=== PATIENT | male | born 1940 | race Caucasian/White ===

== ENCOUNTER 2020-04-21 14:37 | Inpatient (IN) | payer MEDICARE, BC, SELFPAY ==
[2020-04-21] VITALS (9 sets, daily range): BP systolic 149–171; BP diastolic 60–68; PULSE 55–78; RESP 20; TEMP 35.9–36.6; O2SAT 97–100; BMI 22.4; BMI 22.6
--- NOTE | ~2020-04-21 | XR_ITS ---
EXAMINATION: XR chest 2V DATE: 04/21/2020 20:34 INDICATION: Generalized chest pain. Unstable angina. TECHNIQUE: PA and lateral views of the chest were obtained. COMPARISON: None FINDINGS: The lungs are clear with no focal airspace opacities, pulmonary edema, pleural effusion or pneumothor ax. Arch size is normal. Calcified mediastinal lymph nodes consistent with old granulomatous disease. Moderate bilateral acromioclavicular osteoarthritis with prominent inferiorly directed osteophytes. IMPRESSION: 1. No acute cardiopulmonary disease. Reviewed, dictated and finalized at location A.
--- NOTE | 2020-04-21 15:37 | ADMGEN ---
This patient, Zacarias Jacobsen, was admitted to IMU Room 211-01. Patient/family oriented to hospital policies and general routines including ID bracelet, bed and alarms, visiting hours, pain management, procedures, bathroom and other care routines, personal items, smoking policy, room service/diet, and visiting hours. Valuables list has been completed. Information on how to activate the Rapid Response Team has been discussed. Patient/Family are encouraged to report perceived risks to care and to ask questions if they do not understand what they are told or what they should do.
[2020-04-21 16:45] LABS: Hematocrit 38.7 % (42.0-52.0); Hemoglobin 12.9 g/dL (14.0-18.0); Mean Corpuscular HGB Conc 33.3 g/dl (32-36); Mean Corpuscular Hemoglobin 32.5 pg (26-34); Mean Corpuscular Volume 97.5 fl (80-100); Mean Platelet Volume 10.8 fl (7.4-10.4); Platelet Count Result 227 k/mm3 (150-375); Red Blood Count 3.97 M/mm3 (4.6-6.20); Red Cell Distribution Width 12.9 % (11.5-14.5); White Blood Count 7.7 K/mm3 (4.5-10.0)
--- NOTE | 2020-04-21 16:47 | ECG_ITS ---
Measurements Intervals [place] Rate: 57 P: -52 VT: 170 QRS: 48 QRSD: 101 T: 73 QT: 415 QTc: 405 Interpretive Statements SINUS BRADYCARDIA NONSPECIFIC ST & T-WAVE ABNORMALITY- HIGH LATERAL LEADS BASELINE WANDER- III BORDERLINE ECG Electronically Signed On 04-21-2020 18:00:46 CDT by Pan Chen D.O.
--- NOTE | 2020-04-21 16:50 | PM.IMHP ---
H&P: HPI History of Present Illness Chief complaint: chest pain Narrative: Date of service: 04/21/2020 Zacarias Jacobsen is a 80 year old male who is being admitted with unstable angina/crescendo angina. His primary care doctor is Dr. Enoc Rodriguez. Mr. Jacobsen started having problems with exertional chest discomfort about a month ago. It is progressed such that minor activity can cause discomfort and he has had rest pain is well. In addition the intensity has worsened, radiating through to the back, sometimes to his arms. He had some angina this morning while painting a post. He came to our office for a Lexiscan stress test, and had prolonged ST depression after the Lexiscan. He also had some chest and arm discomfort for a time after the testalso. Imaging is pending. No history of heart disease. He has hypertension but no diabetes or hyperlipidemia. The patient has a history of rectal bleeding if he takes aspirin for more than a week. He was told that the blood vessels in his rectum are small and bleed easily. Review of Systems Constitutional: Constitutional: Denies chills and Denies weakness Eyes: Eyes: Reports blurry vision (History I have problem) ENT: Denies Normal hearing present (Wears hearing aides) and Denies nasal congestion Cardiovascular: Cardiovascular: Reports chest pain, Denies pedal edema, Denies leg edema and Denies lightheadedness Respiratory: Respiratory: Denies hemoptysis and Denies dyspnea Gastrointestinal: Gastrointestinal: Denies abdominal pain, Denies hematochezia and Denies hematemesis Genitourinary: Genitourinary: Denies hematuria Musculoskeletal: Musculoskeletal: Reports no additional musculoskeletal complaints Neurologic: Comments: 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, had an angiogram Psychiatric: Psychiatric: Denies behavioral changes and Denies confusion PMFSH Past Medical History Medical History (Updated 04/21/20 @ 17:11 by Kayleen Castaneda MD) Hard of hearing History of rectal bleeding Occurs when patient takes aspirin for prolonged period 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 Thyroid disease Surgical History Surgical History (Updated 04/21/20 @ 16:53 by Kayleen Castaneda MD) H/O eye surgery S/P ear surgery Family History Family History (Updated 04/21/20 @ 17:06 by Kayleen Castaneda MD) Mother Cerebrovascular accident Cause of Pacemaker Father Suicide Social History Social History (Updated 04/21/20 @ 17:09 by Kayleen Castaneda MD) Smoking status: Never smoker Alcohol intake: current Drinks per week: 1 Substance use: never Substance use type: does not use Living arrangements: with family Additional occupation/education comments: Spiritual care concerns: No Meds Home Medications and Allergies Home Medications Medication Instructions Recorded Confirmed Type latanoprostene bunod [Vyzulta] 1 drp OPHTHALMIC (EYE) DAILY 04/21/20 04/21/20 History lisinopril 10 mg PO DAILY 04/21/20 04/21/20 History Allergies Allergy/AdvReac Type Severity Reaction Status Date / Time Penicillins Allergy Unknown RASH Verified 12/23/12 16:19 Vital Signs Vital Signs - 24 hr 04/21/20 15:49 Temperature 96.7 F L Pulse Rate 66 Respiratory Rate 20 Blood Pressure 171/64 H Pulse Oximetry 100 Exam Narrative: Exam Narrative: Pleasant older male who appears younger than the stated age, accompanied by his , chatty,, no distress Const: General: comfortable and no acute distress HENMT: General nose exam: no epistaxis Mouth: Yes moist mucous membranes Other: Hard of hearing Eyes: Sclera: scleral abnormality (Secondary to surgery on the left eye) Neck: Neck: supple and no JVD Carotids: no bruits Resp: Effort & Inspection: normal respiratory effort Auscultation: clear to auscultation bilaterally Cardio: Rate: regular rate Rhythm: regular rhythm Heart sounds: no murmurs GI: Inspection: non-distended GI
[2020-04-21 16:55] LABS: INR 1.3; Prothrombin Time 15.5 Seconds (11.1-14.7)
[2020-04-21 16:56] LABS: Partial Thromboplastin Time 33.2 SECONDS (22.3-36.8)
[2020-04-21 16:57] LABS: Alanine Aminotransferase 14 U/L (4-50); Albumin Level 4.3 g/dL (3.5-5.1); Alkaline Phosphatase 47 U/L (38-126); Aspartate Amino Transferase 21 U/L (17-59); Bilirubin,Total 0.5 mg/dL (0.2-1.3); Blood Urea Nitrogen 24 mg/dL (9-20); Calcium 8.8 mg/dL (8.4-10.2); Carbon Dioxide 28 mmol/L (22-30); Chloride 105 mmol/L (98-107); Estimated CRCL calculation 54 ml/min; Estimated Glomerular Filt Rate > 60; Glucose 164 mg/dL (75-110); Potassium 4.1 mmol/L (3.4-5.0); Sodium 138 mmol/L (137-145)
[2020-04-21 17:28] LABS: Hemoglobin A1C 5.7 % (<5.7)
[2020-04-21] MEDS: ASPIRIN 81 MG ENTERIC TABLET PO (18:00)
[2020-04-21] MEDS: LATANOPROST 0.005% OP SOLN 2.5 ML BTL 1 DROP EACH EYE (21:41)
[2020-04-21] MEDS: METOPROLOL TARTRATE 12.5 MG TABLET PO (21:51)
[2020-04-22] VITALS (25 sets, daily range): BP systolic 116–176; BP diastolic 52–79; PULSE 43–66; RESP 14–20; TEMP 35.7–37.1; O2SAT 96–100
[2020-04-22 05:25] LABS: Cholesterol 197 mg/dL (0-200); HDL Direct 29 mg/dL; Triglycerides 327 mg/dL (<150)
[2020-04-22 05:36] LABS: LDL Cholesterol Direct 88 mg/dL
[2020-04-22 05:37] LABS: Troponin I < 0.012 ng/mL (0.000-0.034)
--- NOTE | 2020-04-22 09:29 | WPDHPUPDATE1 ---
History and Physical Update Update Date/Time: 04/22/20 09:29 History and Physical has been reviewed, including an updated exam of the patient. There are NO changes in the patient's condition. Risks, benefits, and alternatives have been discussed and questions answered. Patient agrees to proceed with procedure.
--- NOTE | 2020-04-22 09:29 | WPDMODSED ---
Moderate Sedation Note-Pt Data Patient Data Allergies Allergy/AdvReac Type Severity Reaction Status Date / Time Penicillins Allergy Unknown RASH Verified 12/23/12 16:19 Home Medications Medication Instructions Recorded Confirmed Type latanoprostene bunod [Vyzulta] 1 drp OPHTHALMIC (EYE) DAILY 04/21/20 04/21/20 History lisinopril 10 mg PO DAILY 04/21/20 04/21/20 History Current Medications: Active Medications Aspirin (Aspirin Ec) 81 mg PO QAM [facility] Last Admin: 04/21/20 18:00 Dose: 81 mg Documented by: Latanoprost (Xalatan) 1 drop EACH EYE HS [facility] Last Admin: 04/21/20 21:41 Dose: 1 drop Documented by: Metoprolol Tartrate (Lopressor) 12.5 mg PO Q12HR [facility] Last Admin: 04/21/20 21:51 Dose: 12.5 mg Documented by: Sedation/Anesthesia: No previous sedation/anesthesia problems (including family history). [facility] Past Medical History Medical History Hard of hearing History of rectal bleeding Occurs when patient takes aspirin for prolonged period 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 Thyroid disease Surgical History Surgical History H/O eye surgery S/P ear surgery Family History Family History Mother Cerebrovascular accident Cause of Pacemaker Father Suicide Social History Social History Smoking status: Never smoker Alcohol intake: current Drinks per week: 1 Substance use: never Substance use type: does not use Living arrangements: with family Additional occupation/education comments: Spiritual care concerns: No Mod Sed Physical Exam Physical Exam Pre Procedural Exam: Normal: Appearance, Eyes, Ears, Nose, Neck, Throat, Airway, Lungs, Heart Size, Heart Rate, Heart Rhythm, Neuro Exam, Abdomen, Liver, Kidneys, Spleen, Breasts, Genitalia, Extremities and Skin Hours since solid foods: 8 Hours since liquid intake: 8 Internal Medicine - PN: Obj Da Vital Signs Vital Signs: Vital Signs - 24 hr 04/21/20 15:49 04/21/20 16:00 04/21/20 16:56 Temperature 35.9 C L 36.3 C L Pulse Rate 66 62 58 L Respiratory Rate 20 20 Blood Pressure 171/64 H 165/68 H Pulse Oximetry 100 100 04/21/20 18:00 04/21/20 19:19 04/21/20 20:00 Temperature 36.5 C Pulse Rate 58 L 55 L 78 Respiratory Rate 20 Blood Pressure 153/60 H Pulse Oximetry 100 04/21/20 21:51 04/21/20 22:00 04/21/20 23:38 Temperature 36.6 C Pulse Rate 60 58 L 62 Respiratory Rate 20 Blood Pressure 149/63 H Pulse Oximetry 97 04/22/20 00:00 04/22/20 02:00 04/22/20 03:41 Temperature Pulse Rate 47 L 45 L 45 L Respiratory Rate Blood Pressure Pulse Oximetry 04/22/20 04:00 04/22/20 06:00 04/22/20 08:00 Temperature 36.4 C L Pulse Rate 45 L 47 L 50 L Respiratory Rate 20 Blood Pressure 116/52 L Pulse Oximetry 100 04/22/20 08:23 Temperature 36.1 C L Pulse Rate 50 L Respiratory Rate 20 Blood Pressure 160/71 H Pulse Oximetry 100 Intake/Output Intake/Output: Intake & Output 04/19/20 04/20/20 04/21/20 04/22/20 23:59 23:59 23:59 23:59 Intake Total 850 Output Total 500 Balance 850 -500 Meds/Results Medications: Active Medications Generic Name Dose Route Start Last Admin Trade Name Freq PRN Reason Stop Dose Admin Aspirin 81 mg 04/21/20 16:35 04/21/20 18:00 Aspirin Ec PO 81 mg QAM FLOR Administration Latanoprost 1 drop 04/21/20 21:00 04/21/20 21:41 Xalatan EACH EYE 1 drop HS FLOR Administration Metoprolol Tartrate 12.5 mg 04/21/20 21:00 04/21/20 21:51 Lopressor PO 12.5 mg Q12HR FLOR Administration Radiology Results: ITS Impressions Chest X-Ray 04/21/20 20:38 IMPRESSION: 1. No acute cardiopulmonary disease. Labs CBC & Chem 7: 04/21/20 16:39 04/21
[2020-04-22] MEDS: ASPIRIN 81 MG ENTERIC TABLET PO (09:32)
--- NOTE | 2020-04-22 10:58 | WPDCARDPROC ---
Cardiac Cath Procedure Note Date of procedure:: 04/22/20 Performing physician:: Yariel Anaya MD Date of service 04/22/2020 Indication:: chest pain Brief clinical history:: this is a 80-year-old patient with past history of hearing loss, hypertension who was evaluated for exertional chest pain. Underwent stress testing and apparently the nuclear images were unremarkable however he had prolonged ST depression with the Lexiscan injection. he also had chest pain and therefore was admitted the patient to undergo cardiac catheterization. Procedure Procedure performed:: 1-Moderate sedation that started at 0955 am and ended at 10:52 am using 2mg of Versed and 50mg fentanyl. The registered nurse was mary clemons. 2-Selective left and right coronary angiogram. 3-Left heart catheterization with measurement of LVEDP and measurement of gradient across aortic valve. 4-Right common femoral arterial angiogram. 5-Deployment of 6 Turkmen Angio-Seal. 6- Deployment of bare metal stent multilink Vision 3.5 x 23 to mid RCA. the deployment was done with a pressure corresponding to a size of 3.77 mm. CRISTY flow 3 before and after intervention.( the stent was expanded to 3.77 mm) Sedation/Medication given:: Moderate sedation. Access site:: Right common femoral artery. Estimated blood loss:: 10cc Procedure note:: After informed consent patient was brought in to dental laboratory supervisor with the was draped and prepped in usual manner. Moderate sedation was given and the right groin was infiltrated using 1% lidocaine. Five Turkmen sheath was obtained using micropuncture needle and the modified Seldinger technique. Selective left coronary angiogram was done using JL4 catheter with the tip of the catheter placed in the left main coronary artery. Selective right coronary angiogram was done using JR4 catheter with the tip of the catheter placed to the right coronary artery. After that 5 Turkmen pigtail catheter was advanced across the aortic valve into the left ventricle with measurement of LVEDP and measurement of gradient across aortic valve. Right common femoral arterial angiogram was done. subsequently the 5 Turkmen sheath was exchanged for 6 Turkmen sheath. Angiomax was given and patient was loaded with Brilinta. After that 6 Turkmen guide catheter JR4 was advanced and engaged the right coronary artery. Coronary luge wire 0.014 was advanced to distal RCA. after that balloon angioplasty was done using 3.5 x 15 balloon with inflation done under 12 atmospheres for 30 seconds corresponding to size 3.75. after that deployment of bare metal stent 3.5 x 23 with deployment done under 13 atmospheres for 35 seconds corresponding to a size of 3.75 mm. final angiogram shows excellent Deployment. Findings:: 1- left coronary artery is a large artery that divides into large LAD, large circumflex artery. Left main funnelsl down however there is no significant stenosis. 2- left anterior descending artery is a large artery that runs and wraps around the apex. Has minimal irregularities. After diagonal branch there is a focal area of stenosis about 30%. The diagonal branch is small to medium in size and has minimal irregularities. 3- left circumflex artery is Medium in size. minimal irregularities. Gives rise to small to medium OM branch that has ostial 30%. 4- right coronary artery is Very large artery and dominant and in the mid segment has 95% stenosis. The rest of the vessel has diffuse irregularities. proximal marginal branch which is relatively small in size 95% ostial stenosis. 5- LVEDP was 20 mm Hgand no gradient across aortic valve. 6- opening arterial pressure was 148/54 and closing pressure was 130/80. 7- right femoral artery angiogram shows no significant disease in the right common femoral artery. Conclusion:: 1- successful stenting of mid RCA using bare metal stent given history of GI bleeding. 2- other coronary irregularities. Assessment and Plan Additional Plan 1- recommend to continue aspir
--- NOTE | 2020-04-22 11:51 | ECG_ITS ---
Measurements Intervals [place] Rate: 47 P: -69 [place]: 168 QRS: 41 QRSD: 92 T: 56 QT: 436 QTc: 389 Interpretive Statements SINUS BRADYCARDIA ABNORMAL ECG Electronically Signed On 04-22-2020 14:11:51 CDT by Pan Chen D.O.
[2020-04-22] MEDS: SODIUM CHLORIDE 0.9% IV 1,000 ML 100 ML IV CONT (13:28)
[2020-04-22] MEDS: METOPROLOL TARTRATE 12.5 MG TABLET PO ×2 (13:36→21:11)
[2020-04-22] MEDS: LATANOPROST 0.005% OP SOLN 2.5 ML BTL 1 DROP EACH EYE (21:11)
[2020-04-22] MEDS: TICAGRELOR 90 MG TABLET PO (21:12)
[2020-04-23] VITALS (7 sets, daily range): BP systolic 160–180; BP diastolic 58–64; PULSE 52–64; RESP 18; TEMP 36.6; O2SAT 100
[2020-04-23 05:03] LABS: Basophils Percent Auto 0.4 % (0.2-1.2); Eosinophils Absolute Auto 0.4 K/mm3 (0-0.3); Eosinophils Percent Auto 4.1 % (0-4.4); Hematocrit 35.9 % (42.0-52.0); Hemoglobin 11.9 g/dL (14.0-18.0); Immature Granulocyte Absolute 0.06 K/mm3 (0.00-0.031); Immature Granulocyte Percent A 0.7 % (0-0.5); Lymphocytes Absolute Auto 1.42 K/mm3 (0.9-3.2); Lymphocytes Percent Auto 16.8 % (18.3-44.2); Mean Corpuscular HGB Conc 33.1 g/dl (32-36); Mean Corpuscular Hemoglobin 32.4 pg (26-34); Mean Corpuscular Volume 97.8 fl (80-100); Mean Platelet Volume 11.1 fl (7.4-10.4); Monocytes Absolute Auto 0.9 K/mm3 (0.1-0.6); Neutrophils Absolute Auto 5.7 K/mm3 (1.3-6.7); Platelet Count Result 197 k/mm3 (150-375); Red Blood Count 3.67 M/mm3 (4.6-6.20); Red Cell Distribution Width 13.3 % (11.5-14.5); White Blood Count 8.5 K/mm3 (4.5-10.0)
[2020-04-23 05:15] LABS: Blood Urea Nitrogen 17 mg/dL (9-20); Calcium 8.5 mg/dL (8.4-10.2); Carbon Dioxide 29 mmol/L (22-30); Chloride 107 mmol/L (98-107); Estimated CRCL calculation 49 ml/min; Estimated Glomerular Filt Rate > 60; Glucose 93 mg/dL (75-110); Potassium 4.7 mmol/L (3.4-5.0); Sodium 137 mmol/L (137-145)
[2020-04-23] MEDS: TICAGRELOR 90 MG TABLET PO (09:37)
[2020-04-23] MEDS: METOPROLOL TARTRATE 12.5 MG TABLET PO (09:37)
[2020-04-23] MEDS: ASPIRIN 81 MG ENTERIC TABLET PO (09:37)
--- NOTE | 2020-04-23 11:12 | PM.DS ---
DS: Admitting Diagnosis Admitting Diagnosis Admitting Diagnosis: Unstable angina DS: Discharge Diagnosis Discharge Diagnosis (1) Unstable angina: Code(s): I20.0 - Unstable angina Status: Acute Assessment and Plan: Status post bare metal stent to right coronary artery 04/22/[address] Anaya DS: Summary Hospital Course Reason for hospitalization: Unstable angina Hospital Course: Direct admit from the office on 04/21/2020 with exertional chest discomfort. He was seen in the office for stress test with prolonged ST depression after Lexiscan. Because of his symptoms and EKG changes he was admitted for cardiac catheterization. He was started on aspirin 81 mg and low-dose Metoprolol. Cardiac catheterization was performed on 04/22/2020 with a significant for very large right coronary artery which was dominant in in the mid section had a 95% stenosis. The rest of the vessel had diffuse irregularities. Proximal marginal branch which was relatively small in size headed 95% ostial stenosis. He underwent successful stenting in the mid RCA using bare metal stent given his history of GI bleed. He was started on Brilinta in addition to his aspirin. He was monitored overnight. He had no arrhythmias. Right groin site was unchanged from the initial assessment immediately post cardiac catheterization. No femoral bruit. Distal pulses intact. He has been ambulating in his room without chest discomfort or shortness of breath. Denied dizziness. Discharged home in stable and pain-free condition. Status at Discharge Functional status at discharge: independent ambulation Overall status at discharge: patient is back to baseline Time Spent with Patient Time attestation: Total time spent providing and/or coordinating discharge services: 20 minutes in the room answering multiple questions regarding medications, activity restrictions, what to do if he should start to bleed, reactions that he had with pain in his groin to upper thigh when he took a statin, follow-up appointment and follow-up lab. 10 minutes to do discharge order and 10 minutes to complete discharge summary. Total time 40 minutes. Time spent: Greater than 30 minutes Exam Const: General: comfortable and no acute distress HENMT: General nose exam: Normal nares present Eyes: Sclera: sclerae normal Neck: Neck: supple and no JVD Resp: Effort & Inspection: normal respiratory effort Auscultation: clear to auscultation bilaterally Cardio: Rate: regular rate Rhythm: regular rhythm Heart sounds: no murmurs GI: GI Palp: Yes Soft to palpation Auscultation: normal bowel sounds Skin: General skin exam: normal color and no rashes or lesions noted Neuro: General: patient oriented x3 Speech: normal speech Extrem: General: other Other: Right groin site assessment is unchanged from the initial assessment post cardiac catheterization yesterday. There is slight puffiness. No bleeding. No femoral bruit. Distal pulses intact. Psych: Appearance: grossly normal Speech and movement: Normal speech and movement present Affect: normal affect Thought content: Yes Normal thought content present DS: Data Data Completed and Pending Labs on day of discharge: Labs from last 24 hours 04/23/20 04/23/20 04:35 04:35 WBC 8.5 RBC 3.67 L Hgb 11.9 L Hct 35.9 L MCV 97.8 MCH 32.4 MCHC 33.1 RDW 13.3 Plt Count 197 MPV 11.1 H Immature Gran % (Auto) 0.7 H Neut % (Auto) 67.0 Lymph % (Auto) 16.8 L [place] % (Auto) 11.0 H Eos % (Auto) 4.1 Baso % (Auto) 0.4 Lymph # (Auto) 1.42 [place] # (Auto) 0.9 H Eos # (Auto) 0.4 H Baso # (Auto) 0.0 Abs Immat Gran (auto) 0.06 H Absolute Neuts (auto) 5.7 Absolute Nucleated RBC 0.0 Nucleated RBC % 0.0 Sodium 137 Potassium 4.7 Chloride 107 Carbon Dioxide 29 BUN 17 Creatinine 1.10 Estim Creat Clear Calc 49 Estimated GFR > 60 Glucose 93 Calcium 8.5 Discharge Plan Disch
== END 2020-04-23 12:40 | disposition home or self-care (01) | DRG 249 ==
PROVIDERS: Internal Medicine Cardiovascular Disease; Nurse Practitioner Adult Health; Admitting Provider Internal Medicine Cardiovascular Disease; PCP Internal Medicine; Visit Provider Internal Medicine Cardiovascular Disease
PROC: 4A023N7 Measurement of Cardiac Sampling and Pressure, Left Heart, Percutaneous Approach (ICD-10-PCS; CPT 93452; principal; 2020-04-22 10:00)
PROC: 02703DZ Dilation of Coronary Artery, One Artery with Intraluminal Device, Percutaneous Approach (ICD-10-PCS; 2020-04-22 10:00)
PROC: 02703DZ Dilation of Coronary Artery, One Artery with Intraluminal Device, Percutaneous Approach (ICD-10-PCS; 2020-04-22 10:00)
DX: I25.110 Atherosclerotic heart disease of native coronary artery with unstable angina pectoris (principal); I10 Essential (primary) hypertension; Z86.73 Personal history of transient ischemic attack (TIA), and cerebral infarction without residual deficits; E07.9 Disorder of thyroid, unspecified; R73.9 Hyperglycemia, unspecified
CPT/HCPCS: 36415; 71046; 80048; 80053; 80061; 83036; 84484; 85025; 85027; 85610; 85730; 92928; 93005; 93458; A9270; C1725; C1760; C1769; C1876; C1887; C1894; G0269; J0461; J0583; J1644; J2250; J3010; J7030; J7040

== ENCOUNTER 2025-04-01 07:52 | Outpatient (CLI) | payer MEDICARE, BC, SELFPAY ==
--- OUTSIDE RECORDS SUMMARY | 2025-04-01 07:55 | XMS_ITS | CONTINUITY OF CARE DOCUMENT ---
Author Name [email or web address] Address Unknown Organization [facility] Address [id number] [place] [address] [address] [place] [address] Phone [phone] Care Team Providers Care Interlocker Name Role Phone Janel GTZ, Bobo Unavailable [phone] DIEUDONNE SHELTON MD Unavailable [phone] DIEUDONNE SHELTON MD Unavailable [phone] INSURANCE PROVIDERS Payer name Policy type / Coverage type [employer] red democrat ID [facility] [id number] [place] [employer] Medicare [id number]
--- OUTSIDE RECORDS SUMMARY | 2025-04-01 07:55 | XMS_ITS | Data Portability ---
Author Organization [facility] Address [address] [place] [address] Care Team Providers Care Semiconductor Engineer Name Role Phone DIEUDONNE RODRIGUEZ Primary Care Provider Assessment Encounter Date Assessment Date Assessment LastModified by Organization Details LastModified Time 01/23/2024 01/23/2024 X-ray severe arthritis I worry about the fact that he had a little bit of that nicking of the skin so empirically doxycycline 100 twice daily 7 days and a Medrol dose x-rays reviewed by report as well as blood work that he brought with him from the emergency room. CAD will continue current therapy he has not tolerated statins before I have tried to put him on Zetia but he has been resistant. Hypothyroid we have just been following his blood work for that he has seen Endo before. He will let me know in a few days how he is doing. Obtain records from prior clinic [email or web address] Not available 01/23/2024 21:09:43 10/13/2024 10/13/2024 blood work has been ordered we will continue current therapy he will follow up with me in 4 months is not going to do a COVID shot and he will think about the pneumococcal [email or web address] Not available 10/19/2024 15:41:19 Plan of Treatment Reminders Order Date Submit Date Provider Last Modified By Organization Details Last Modified Time Details Appointments ANY 15 2024 01:30P M Dieudonne Rodriguez MD Not available Not available Not available Lab lipid panel, serum 2023 024 [facility] Registration Department, [address] [place] [address] [place], [address], 10/17/2024 17:55:22 CMP, serum or plasma 2023 024 [facility] Registration [facility], [address], [place], [address], 10/17/2024 17:55:22 CBC w/ auto diff 2023 024 [facility] Registration [facility], [address], [place], [address], 10/17/2024 17:55:21 TSH, ultra-sen sitive, serum 2023 024 [facility] Registration Department, [address], [place], [address], 10/17/2024 17:55:21 T3, free, serum or plasma 2023 024 [facility] Registration [facility], [address], [place], [address], 10/17/2024 17:55:22 unlisted lab 2023 024 [facility] Registration [facility], [address] , [place], [address], 10/17/2024 17:55:21 Referral None recorded. Procedures None recorded. Surgeries None recorded. Imaging None recorded. Medication Orders Medrol (Jared) 4 mg tablets in a dose pack 2023 024 [facility] #[id number], [address] [place], [address], 10/13/2024 15:17:39 doxycycli ne hyclate 100 mg capsule 2023 024 [facility] #[id number], [address] [place], [address], 10/13/2024 15:17:30 Patient TargetsNo targets recorded. Patient InstructionsNo instructions recorded. Reason for Referral None Reported. Results Created Date Observation Date Name Description Value Unit Range Abnormal Flag Note LastModifiedBy Organization Detail LastModifiedTime 10/22/20 24 10/23/2024 Teodora stero l in LDL [Mass /volu me] in Serum or Plasm a by Direc t assay cholesterol in LDL [mass/volume ] in serum or plasma by direct assay 135 text: <100 mg/dL high DIREC T LDL 135 (H) <100 MG/DL 10/23 4:03 AM DOUGHNUT MACHINE OPER[facility] Not Available Not Available 01/05/2025 11:13:05 10/22/20 24 10/23/2024 Teodora stero l in LDL [Mass /volu me] in Serum or Plasm a by Direc t assay interpretati on and review of laboratory results Abnorm al Not Available Not Available 11:13:05 10/22/20 24 10/23/2024 Triio dothy ferdinand e (T3) Free [Mass /volu me] in Serum or Plasm a triiodothyro nine (T3) free [mass/volume ] in serum or plasma 2.6 pg/mL low: 2.18pg /mLhig h: 3.98pg /mL FREE T3 2.6 2.18 - 3.98 PG/ML 10/23 12:[address] [facility] Not Available Not Available 01/05/2025 11:13:05 10/22/20 24 10/22/2024 Thyro tropi n [Unit s/vol ume] in Serum or Plasm a thyrotropin [units/volum e] in serum or plasma 10.1 text: 0.358 - 3.74 uIU/mL high TSH 10.10 0 (H) 0.358 - 3.74 uIU/M L 10/22 8:05 [facility] Not [facility] Not Available 01/05/2025 11:13:05 10/22/20 24 10/22/2024 Thyro tropi n [Unit s/vol ume] in Serum or Plasm a interpretati on and review of laboratory results Abnorm al Not Available Not Available 11:13:05 10/22/20 24 10/22/2024 CBC W Auto Diffe renti al panel - Blood leukocytes [#/volume] in blood by automated count 6.08 text: 4.50 - 11.00 x10'3/ uL WBC 6.08 4.50 - 11.00 x10'3 /uL 10/22 12:19 PM DOUGHNUT MACHINE OPERATOR [facility] Not Available Not Available 01/05/2025 11:13:04 10/22/20 24 10/22/2024 CBC W Auto Diffe renti al panel - Blood erythrocytes [#/volume] in blood by automated count 3.87 text: 4.50 - 5.90 x10'6/ uL low RBC 3.87 (L) 4.50 - 5.90 x10'6 /uL 10/22 12:19 PM DOUGHNUT MACHINE OPERATOR [facility] Not Available Not Available 01/05/2025 11:13:04 10/22/20 24 10/22/2024 CBC W Auto Diffe renti al panel - Blood hemoglobin [mass/volume ] in blood 12.6 text: 14.0 - 18.0 g/dL low HGB 12.6 (L) 14.0 - 18.0 G/DL 10/22 12:19 PM DOUGHNUT MACHINE OPERATOR [facility] Not Available Not Available 01/05/2025 11:13:04 10/22/20 24 10/22/2024 CBC W Auto Diffe renti al panel - Blood hematocrit [volume fraction] of blood 37.7 % low: 43%hig h: 54% low HCT 37.7 (L) 43.0 - 54.0 % 10/22 12:19 PM DOUGHNUT MACHINE OPERATOR [facility] Not Available Not Available 01/05/2025 11:13:04 10/22/20 24 10/22/2024 CBC W Auto Diffe renti al panel - Blood MCV [entitic volume] 97.4 text: 80.0 - 100.0 fL MCV 97.4 80.0 - 100.0 FL 10/22 12:19 PM DOUGHNUT MACHINE OPERATOR [facility] Not Available Not Available 01/05/2025 11:13:04 10/22/20 24 10/22/2024 CBC W Auto Diffe renti al panel - Blood MCH [entitic mass] 32.6 pg low: 26pghi gh: 34pg MCH 32.6 26.0 - 34.0 PG 10/22 12:19 PM DOUGHNUT MACHINE OPERATOR [facility] Not Available Not Available 01/05/2025 11:13:04 10/22/20 24 10/22/2024 CBC W Auto Diffe renti al panel - Blood MCHC [mass/volume ] 33.4 text: 31.0 - 37.0 g/dL MCHC 33.4 31.0 - 37.0 G/DL 10/22 12:19 PM DOUGHNUT MACHINE OPERATOR [facility] Not Available Not Available 01/05/2025 11:13:04 10/22/20 24 10/22/2024 CBC W Auto Diffe renti al panel - Blood erythrocyte distribution width [entitic volume] by automated count 12.5 % low: 11.6%h igh: 14.8% RDW 12.5 11.6 - 14.8 % 10/22 12:19 PM DOUGHNUT MACHINE OPERATOR HELPER [facility] Not Available Not Available 01/05/2025 11:13:04 10/22/20 24 10/22/2024 CBC W Auto Diffe renti al panel - Blood platelets [#/volume] in blood 216 text: 130 - 400 x10'3/ uL PLT 216 130 - 400 x10'3 /uL 10/22 12:19 PM DOUGHNUT MACHINE OPERATOR [facility] Not Available Not Available 01/05/2025 11:13:04 10/22/20 24 10/22/2024 CBC W Auto Diffe renti al panel - Blood platelet mean volume [entitic volume] in blood 10.8 text: 7.0 - 12.0 fL MPV 10.8 7.0 - 12.0 FL 10/22 12:19 PM DOUGHNUT MACHINE OPERATOR [facility] Not Available Not Available 01/05/2025 11:13:04 10/22/20 24 10/22/2024 CBC W Auto Diffe renti al panel - Blood service comment AUTOMA GEOVANY RBC MORPHO LOGY AND PLATEL ET EVALUA TION NORMAL CBC COMME NT AUTOM ATED RBC MORPH OLOGY AND PLATE LET EVALU ATION LORRAINE L 10/22 12:19 PM DOUGHNUT MACHINE OPERATOR [facility] Not Available Not Available 01/05/2025 11:13:04 10/22/20 24 10/22/2024 CBC W Auto Diffe renti al panel - Blood neutrophils/ 100 leukocytes in blood by automated count 60.1 % low: 40%hig h: 74% NEUTR OPHIL S % 60.1 40.0 - 74.0 % 10/22 12:19 PM DOUGHNUT MACHINE OPERATOR [facility] Not Available Not Available 01/05/2025 11:13:04 10/22/20 24 10/22/2024 CBC W Auto Diffe renti al panel - Blood lymphocytes/ 100 leukocytes in blood by automated count 23.2 % low: 14%hig h: 46% LYMPH OCYTE S % 23.2 14.0 - 46.0 % 10/22 12:19 PM DOUGHNUT MACHINE OPERATOR [facility] Not Available Not Available 01/05/2025 11:13:04 10/22/20 24 10/22/2024 CBC W Auto Diffe renti al panel - Blood monocytes/10 0 leukocytes in blood by automated count 11.8 % low: 4%high : 13% MONOC YTES % 11.8 4.0 - 13.0 % 10/22 12:19 PM DOUGHNUT MACHINE OPERATOR [facility] Not Available Not Available 01/05/2025 11:13:04 10/22/20 24 10/22/2024 CBC W Auto Diffe renti al panel - Blood eosinophils/ 100 leukocytes in blood by automated count 4.1 % low: 0%high : 7% EOSIN OPHIL S 4.1 0.0 - 7.0 % 10/22 12:19 PM DOUGHNUT MACHINE OPERATOR [facility] Not Available Not Available 01/05/2025 11:13:04 10/22/20 24 10/22/2024 CBC W Auto Diffe renti al panel - Blood basophils/10 0 leukocytes in blood by automated count 0.5 % low: 0%high : 3% BASOP HILS 0.5 0.0 - 3.0 % 10/22 12:19 PM DOUGHNUT MACHINE OPERATOR [facility] Not Available Not Available 01/05/2025 11:13:04 10/22/20 24 10/22/2024 CBC W Auto Diffe renti al panel - Blood immature granulocytes /100 leukocytes in blood by automated count 0.3 % low: 0%high : 0.43% IMMAT URE GRANS % 0.3 0.0 - 0.43 % 10/22 12:19 PM DOUGHNUT MACHINE OPERATOR [facility] Not Available Not Available 01/05/2025 11:13:04 10/22/20 24 10/22/2024 CBC W Auto Diffe renti al panel - Blood nucleated erythrocytes /100 leukocytes [ratio] in blood 0 % NRBC % 0.0 % 10/22 12:19 PM DOUGHNUT MACHINE OPERATOR [facility] Not Available Not Available 01/05/2025 11:13:04 10/22/20 24 10/22/2024 CBC W Auto Diffe renti al panel - Blood neutrophils [#/volume] in blood 3.65 text: 1.69 - 7.81 x10'3/ uL ABS. NEUTR OPHIL S TOTAL 3.65 1.69 - 7.81 x10'3 /uL 10/22 12:19 PM DOUGHNUT MACHINE OPERATOR [facility] Not Available Not Available 01/05/2025 11:13:04 10/22/20 24 10/22/2024 CBC W Auto Diffe renti al panel - Blood lymphocytes [#/volume] in blood 1.41 text: 0.21 - 5.42 x10'3/ uL ABS. LYMPH OCYTE S 1.41 0.21 - 5.42 x10'3 /uL 10/22 12:19 PM DOUGHNUT MACHINE OPERATOR [facility] Not Available Not Available 01/05/2025 11:13:04 10/22/20 24 10/22/2024 CBC W Auto Diffe renti al panel - Blood monocytes [#/volume] in blood 0.72 text: 0.04 - 1.37 x10'3/ uL ABS. MONOC YTES 0.72 0.04 - 1.37 x10'3 /uL 10/22 12:19 PM DOUGHNUT MACHINE OPERATOR [facility] Not Available Not Available 01/05/2025 11:13:04 10/22/20 24 10/22/2024 CBC W Auto Diffe renti al panel - Blood eosinophils [#/volume] in blood 0.25 text: 0.00 - 0.68 x10'3/ uL ABS. EOSIN OPHIL S 0.25 0.00 - 0.68 x10'3 /uL 10/22 12:19 PM DOUGHNUT MACHINE OPERATOR [facility] Not Available Not Available 01/05/2025 11:13:04 10/22/20 24 10/22/2024 CBC W Auto Diffe renti al panel - Blood basophils [#/volume] in blood 0.03 text: 0.00 - 0.08 x10'3/ uL ABS. BASOP HILS 0.03 0.00 - 0.08 x10'3 /uL 10/22 12:19 PM DOUGHNUT MACHINE OPERATOR [facility] Not Available Not Available 01/05/2025 11:13:04 10/22/20 24 10/22/2024 CBC W Auto Diffe renti al panel - Blood immature granulocytes [#/volume] in blood 0.02 text: 0.00 - 0.06 x10'3/ uL ABS. IMMAT URE GRANU LOCYT ES 0.02 0.00 - 0.06 x10'3 /uL 10/22 12:19 PM DOUGHNUT MACHINE OPERATOR [facility] Not Available Not Available 01/05/2025 11:13:04 10/22/20 24 10/22/2024 CBC W Auto Diffe renti al panel - Blood nucleated erythrocytes [#/volume] in blood 0 text: 0.00 - 0.01 x10'3/ uL ABS. NUCLE ATED RBC'S 0.00 0.00 - 0.01 x10'3 /uL 10/22 12:19 PM DOUGHNUT MACHINE OPERATOR [facility] Not Available Not Available 01/05/2025 11:13:04 10/22/20 24 10/22/2024 CBC W Auto Diffe renti al panel - Blood interpretati on and review of laboratory results Abnorm al Not Available Not Available 11:13:04 10/22/20 24 10/22/2024 Compr ehens christen metab olic 1999 panel - Serum or Plasm a glucose [mass/volume ] in serum or plasma 91 text: 70 - 99 mg/dL GLUCO SE 91 70 - 99 MG/DL 10/22 2:08 PM DOUGHNUT MACHINE OPERATOR [facility]PER [facility] Not Available Not Available 01/05/2025 11:13:04 10/22/20 24 10/22/2024 Compr ehens christen metab olic 1999 panel - Serum or Plasm a urea nitrogen [mass/volume ] in serum or plasma 25 text: 7 - 18 mg/dL high BUN 25 (H) 7 - 18 MG/DL 10/22 2:08 PM DOUGHNUT MACHINE OPERATOR HELPER [facility] Not Available Not Available 01/05/2025 11:13:04 10/22/20 24 10/22/2024 Compr ehens christen metab olic 2000 panel - Serum or Plasm a creatinine [mass/volume ] in serum or plasma 1.32 text: 0.50 - 1.20 mg/dL high CREAT ININE S/P/B 1.32 (H) 0.50 - 1.20 MG/DL 10/22 2:08 PM DOUGHNUT MACHINE OPERATOR HELPER [facility] Not Available Not Available 01/05/2025 11:13:04 10/22/20 24 10/22/2024 Compr ehens christen metab olic 2000 panel - Serum or Plasm a sodium [moles/volum e] in serum or plasma 138 text: 136 - 145 mmol/L SODIU M S/P/B 138 136 - 145 MMOL/ L 10/22 2:08 PM DOUGHNUT MACHINE OPERATOR HELPER [facility] Not Available Not Available 01/05/2025 11:13:04 10/22/20 24 10/22/2024 Compr ehens christen metab olic 2000 panel - Serum or Plasm a potassium [moles/volum e] in serum or plasma 5 text: 3.5 - 5.1 mmol/L POTAS SIUM S/P/B 5.0 3.5 - 5.1 MMOL/ L 10/22 2:08 PM DOUGHNUT MACHINE OPERATOR [facility] Not Available Not Available 01/05/2025 11:13:04 10/22/20 24 10/22/2024 Compr [employer] christen metab olic 1999 panel - Serum or Plasm a chloride [moles/volum e] in serum or plasma 103 text: 100 - 108 mmol/L CHLOR SULEMA S/P/B 103 100 - 108 MMOL/ L 10/22 2:08 PM DOUGHNUT MACHINE OPERATOR [facility] Not Available Not Available 01/05/2025 11:13:04 10/22/20 24 10/22/2024 Compr The Extraordinaries[employer] christen metab olic 1999 panel - Serum or Plasm a carbon dioxide, total [moles/volum e] in serum or plasma 25.8 text: 21.0 - 32.0 mmol/L CO2 25.8 21.0 - 32.0 MMOL/ L 10/22 2:08 PM DOUGHNUT MACHINE OPERATOR [facility] Not Available Not Available 01/05/2025 11:13:04 10/22/20 24 10/22/2024 Compr [employer] christen [employer] olic 1999 panel - Serum or Plasm a calcium [mass/volume ] in serum or plasma 8.5 text: 8.5 - 10.1 mg/dL CALCI UM S/P/B 8.5 8.5 - 10.1 MG/DL 10/22 2:08 PM DOUGHNUT MACHINE OPERATOR [facility] Not Available Not Available 01/05/2025 11:13:04 10/22/20 24 10/22/2024 Compr The Extraordinariesens christen metab olic 1999 panel - Serum or Plasm a bilirubin.to william [mass/volume ] in serum or plasma 0.5 text: 0.2 - 1.2 mg/dL BILIR UBIN TOTAL S/P/B 0.5 0.2 - 1.2 MG/DL 10/22 2:08 PM DOUGHNUT MACHINE OPERATOR HELPER [facility] Not Available Not Available 01/05/2025 11:13:04 10/22/20 24 10/22/2024 Compr The Extraordinariesens christen metab olic 1999 panel - Serum or Plasm a protein [mass/volume ] in serum or plasma 7.2 text: 6.4 - 8.2 g/dL TOTAL PROTE IN S/P/B 7.2 6.4 - 8.2 G/DL 10/22 2:08 PM DOUGHNUT MACHINE OPERATOR HELPER [facility] Not Available Not Available 01/05/2025 11:13:04 10/22/20 24 10/22/2024 Compr ens christen metab olic 1999 panel - Serum or Plasm a albumin [mass/volume ] in serum or plasma 3.7 text: 3.4 - 5.0 g/dL ALBUM IN S/P/B 3.7 3.4 - 5.0 G/DL 10/22 2:08 PM DOUGHNUT MACHINE OPERATOR HELPER [facility] Not Available Not Available 01/05/2025 11:13:04 10/22/20 24 10/22/2024 Compr The Extraordinariesens christen metab olic 1999 panel - Serum or Plasm a aspartate aminotransfe rase [enzymatic activity/vol ume] in serum or plasma 15 U/L low: 15U/Lh igh: 37U/L AST 15 15 - 37 U/L 10/22 2:08 PM DOUGHNUT MACHINE OPERATOR HELPER [facility] Not Available Not Available 01/05/2025 11:13:04 10/22/20 24 10/22/2024 Compr ens christen metab olic 1999 panel - Serum or Plasm a alanine aminotransfe rase [enzymatic activity/vol ume] in serum or plasma 17 U/L low: 16U/Lh igh: 60U/L ALT 17 16 - 60 U/L 10/22 2:08 PM DOUGHNUT MACHINE OPERATOR HELPER [facility] Not Available Not Available 01/05/2025 11:13:04 10/22/20 24 10/22/2024 Compr ehens christen metab olic 1999 panel - Serum or Plasm a alkaline phosphatase [enzymatic activity/vol ume] in serum or plasma 52 U/L low: 50U/Lh igh: 136U/L ALKAL INE PHOSP HATAS E S/P/B 52 50 - 136 U/L 10/22 2:08 PM DOUGHNUT MACHINE OPERATOR HELPER [facility] Not Available Not Available 01/05/2025 11:13:04 10/22/20 24 10/22/2024 Compr ehens christen metab olic 1999 panel - Serum or Plasm a anion gap in serum or plasma 9.2 text: 5.0 - 15.0 mmol/L ANION GAP 9.2 5.0 - 15.0 MMOL/ L 10/22 2:08 PM DOUGHNUT MACHINE OPERATOR HELPER [facility] Not Available Not Available 01/05/2025 11:13:04 10/22/20 24 10/22/2024 Compr ehens christen metab olic 1999 panel - Serum or Plasm a urea nitrogen/cre atinine [mass ratio] in serum or plasma 18.9 low: 6high: 26 BUN CREAT ININE RATIO 18.9 6 - 26 10/22 2:08 PM DOUGHNUT MACHINE OPERATOR HELPER [facility] Not Available Not Available 01/05/2025 11:13:04 10/22/20 24 10/22/2024 Compr ehens christen metab olic 2000 panel - Serum or Plasm a albumin/glob ulin [mass ratio] in serum or plasma 1.1 text: 1.0 - 2.5 ratio A/G RATIO 1.1 1.0 - 2.5 RATIO 10/22 2:08 PM DOUGHNUT MACHINE OPERATOR HELPER [facility] Not Available Not Available 01/05/2025 11:13:04 10/22/20 24 10/22/2024 Compr ehens christen metab olic 2000 panel - Serum or Plasm a glomerular filtration rate/1.73 sq M.predicted [volume rate/area] in serum, plasma or blood by creatinine-b ased formula (CKD-epi 2020) 53 text: >90 mL/min /1.73 M2 low GFR ESTIM ATE 53 (L) >90 ML/MS N/1.7 3 M2 10/22 2:08 PM DOUGHNUT MACHINE OPERATOR HELPER [facility] Not Available Not Available 01/05/2025 11:13:04 10/22/20 24 10/22/2024 Compr ehens christen metab olic 2000 panel - Serum or Plasm a interpretati on and review of laboratory results Abnorm al Not Available Not Available 11:13:04 10/22/20 24 10/22/2024 Lipid 1996 panel - Serum or Plasm a cholesterol [mass/volume ] in serum or plasma 270 text: <200 mg/dL high TEODORA STERO L 270 (H) <200 MG/DL 10/22 8:05 PM [facility] Not Available Not Available 01/05/2025 11:13:04 10/22/20 24 10/22/2024 Lipid 1996 panel - Serum or Plasm a triglyceride [mass/volume ] in serum or plasma 423 text: <150 mg/dL high TRIGL YCERI MARIANA 423 (H) <150 MG/DL 10/22 8:05 PM [facility] Not Available Not Available 01/05/2025 11:13:04 10/22/20 24 10/22/2024 Lipid 1996 panel - Serum or Plasm a cholesterol in HDL [mass/volume ] in serum or plasma 40 text: >40.0 mg/dL low HDL 40 (L) >40.0 MG/DL 10/22 8:05 PM [facility] Not Available Not Available 01/05/2025 11:13:04 10/22/20 24 10/22/2024 Lipid 1996 panel - Serum or Plasm a cholesterol in LDL [mass/volume ] in serum or plasma by calculation NOT CALCUL ATED text: <100 mg/dL LDL (CALC ULATE D) NOT CALCU LATED <100 MG/DL 10/22 8:05 PM [facility] Not Available Not Available 01/05/2025 11:13:04 10/22/20 24 10/22/2024 Lipid 1996 panel - Serum or Plasm a cholesterol non HDL [mass/volume ] in serum or plasma 230 text: <130 mg/dL high NON HDL TEODORA STERO L 230 (H) <130 MG/DL 10/22 8:05 PM [facility] Not Available Not Available 01/05/2025 11:13:04 12/18/10/22/2024 Lipid 1996 panel - Serum or Plasm a cholesterol. total/choles terol in HDL [mass ratio] in serum or plasma 6.8 low: 0high: 4.5 high CHOL/ HDL RATIO 6.8 (H) 0.0 - 4.5 10/22 8:05 PM DOUGHNUT MACHINE OPERATOR HELPER [facility] Not Available Not Available 01/05/2025 11:13:04 10/22/20 24 10/22/2024 Lipid 1996 panel - Serum or Plasm a cholesterol in VLDL [mass/volume ] in serum or plasma by calculation NOT CALCUL ATED text: 5 - 55 mg/dL VLDL CALCU LATIO N NOT CALCU LATED 5 - 55 MG/DL 10/22 8:05 PM DOUGHNUT MACHINE OPERATOR HELPER [facility] Not Available Not Available 01/05/2025 11:13:04 10/22/20 24 10/22/2024 Lipid 1996 panel - Serum or Plasm a service comment LIPID INTER PRETA TION 10/22 8:05 PM [facility] Not Available Not Available 01/05/2025 11:13:04 10/22/20 24 10/22/2024 Lipid 1996 panel - Serum or Plasm a interpretati on and review of laboratory results Abnorm al Not Available Not Available 11:13:04 Result Notes None recorded. Problems Name Problem SNOMED Code Status Onset Date Resolution Date Notes Provider Name and Address Organization Details Recorded Time Coronary atheroscler osis 827630828 Active 2023 Dieudonne Rodriguez MD Attn: Nelson manuel,[address] [place], [address], [place] [facility] 4 21:07:10 Hypothyroid ism 72688709 Active 2023 Dieudonne Rodriguez MD Attn: Nelson manuel,[address] [place], [address], [place] [facility] [place] 21:07:11 Essential hypertensio n 13778646 Active 2023 Dieudonne Rodriguez MD Attn: Nelson manuel,[address] [place], [address], [facility] 21:07:15 Pain of left wrist 9127580800510 02 Active 2023 Dieudonne Rodriguez MD Attn: Nelson manuel,[address] [facility], [place], [address], [facility] 4 21:07:17 Problem Notes None recorded. Procedures Surgical History Date Name Laterality Status Provider Name and Address Organization Details Recorded Time Eye Surgery completed Rebel Umanzor MA [facility] 01/23/2024 15:36:13 Imaging Results None recorded. Procedure Notes None recorded. Medical Equipment None Reported. Allergies Allergen ID Allergen Name Allergen Category Reaction Reaction Severity Criticality Documentation Date Start Date Code Code System Note Provider Name and Address Organization Details Recorded Time 16811106 Product containin g penicilli n (product) medicatio n Not available Not available Not available 01/23/2024 14990 8001 [facility] Rebel Umanzor MA [facility] 15:39:27 16811107 Product containin g 3-hydroxy -3-methyl glutaryl- coenzyme A reductase inhibitor (product) medicatio n Not available Not available Not available 01/23/2024 61037 009 [facility] Rebel Umanzor MA [facility] 15:39:41 Medications Name Sig Start Date Stop Date Status Note LastModified by Organization Details LastModified Time latanoprost 0.005 % eye drops INSTILL 1 DROP INTO RIGHT EYE AT NIGHT active Not Available Not Available No t Available doxycycline hyclate 100 mg capsule TAKE 1 CAPSULE BY MOUTH TWICE A DAY FOR 7 DAYS 10/13 completed Not Available Not Available Not Available ofloxacin 0.3 % eye drops PLACE 1 DROP INTO THE LEFT EYE 4 TIMES DAILY FOR 10 DAYS. 01/22 completed Not Available Not Available Not Available lisinopril 20 mg tablet TAKE 1 TABLET BY MOUTH EVERY DAY active Not Available Not Available No t Available prednisolon e acetate 1 % eye drops,suspe nsion INSTILL ONE DROP INTO LEFT EYE ONCE A DAY active Not Available Not Available No t Available brimonidine 0.2 % eye drops INSTILL 1 DROP IN RIGHT EYE TWICE A DAY 10/13 completed Not Available Not Available Not Available methylpredn isolone 4 mg tablets in a dose pack TAKE 6 TABLETS ON DAY 1 DIRECTED ON PACKAGE AND DECREASE BY 1 TAB EACH DAY FOR A TOTAL OF 6 DAYS 10/13 completed Not Available Not Available Not Available timolol maleate 0.5 % eye drops INSTILL 1 DROP IN RIGHT EYE TWICE A DAY 10/13 completed Not Available Not Available Not Available dorzolamide 2 % eye drops INSTILL ONE DROP INTO RIGHT EYE TWICE DAILY. active Not Available Not Available No t Available neomycin 3.5 mg/g-polymy hanh B 10,000 unit/g-dexa meth 0.1 % eye oint APPLY A SMALL STRIP TO LEFT EYE NIGHTLY BEGIN AFTER SURGERY AND CONTINUE DIRECTED 01/22 completed Not Available Not Available Not Available diflupredna te 0.05 % eye drops INSTILL ONE DROP INTO THE LEFT EYE ONCE DAILY DIRECTED 10/13 completed Not Available Not Available Not Available Besivance 0.6 % eye drops,suspe nsion INSTILL 1 DROP INTO LEFT EYE THREE TIMES DAILY BEGIN TWO DAYS PRIOR TO SURGERY 01/22 completed Not Available Not Available Not Available Prolensa 0.07 % eye drops INSTILL 1 DROP INTO LEFT EYE EVERY DAY 01/22 completed Not Available Not Available Not Available Vyzulta 0.024 % eye drops INSTILL 1 DROP INTO RIGHT EYE AT BEDTIME active Not Available Not Available No t Available aspirin 81 mg capsule Take 1 capsule every day by oral route. active Not Available Not Available No t Available Vitals Date Recorded Body weight Body mass index (BMI) Body height Oxygen saturation Oxygen saturation in Arterial blood by Pulse oximetry Heart rate Systolic blood pressure Diastolic blood pressure Provider Name and Address Organization Details Last Updated DateTime 4 67503.7 4 g 23 kg/m2 180.34 cm 100 % 100 % 58 /min 154 mm[Hg] 68 mm[Hg] Rebel Umanzor [place] - [facility] 4 15:46:52 Date Recorded Body height Body mass index (BMI) Body weight Heart rate Oxygen saturation Oxygen saturation in Arterial blood by Pulse oximetry Systolic blood pressure Diastolic blood pressure Provider Name and Address Organization Details Last Updated DateTime 4 180.34 cm 23.5 kg/m2 61050.2 4 g 56 /min 99 % 99 % 130 mm[Hg] 76 mm[Hg] Candie OharaJAMIA [place] - [facility] 15:16:58 Social History Question Answer Notes LastModified by Organizat ion Details LastModified Time Tobacco Smoking Status Never Smoker Rebel Umanzor [place], [place] - [facility] 01/23/2024 15:33:46 Do You Have An Advance Directive? Yes Information n ot available 01/23/2024 Are You Blind Or Do You Have Difficulty Seeing? No Information n ot available 01/23/2024 What Is Your Level Of Caffeine Consumption? Moderate Information not available 01/23/2024 In The 14 Days Before Symptom Onset, Have You Had Close Contact With A Laboratory-confirm ed COVID-19 While That Case Was Ill? No Information n ot available 10/13/2024 In The 14 Days Before Symptom Onset, Have You Had Close Contact With A Person Who Is Under Investigation For COVID-19 While That Person Was Ill? No Information not available 10/13/2024 Have You Been To An Area Known To Be High Risk For COVID-19? No Information not available 10/13/2024 Are You Deaf Or Do You Have Serious Difficulty Hearing? Yes Information not available 01/23/2024 What Type Of Diet Are You Following? REGULAR Information n ot available 01/23/2024 Are There Any Guns Present In Your Home? No Information not available 10/13/2024 What Was The Date Of Your Most Recent Tobacco Screening? 10/13/2024 Information not available 10/13/2024 What Is Your Relationship Status? Information not available 01/23/2024 Do You Use Your Seat Belt Or Car Seat Routinely? Yes Information not available 01/23/2024 Do You Have Smoke And Carbon Monoxide Detectors In Your Home? Yes Information not available 01/23/2024 Do You Use Sunscreen Routinely? No Information not available 10/13/2024 Has Tobacco Cessation Counseling Been Provided? No Information not available 01/23/2024 Sex: Male Functional Status Question Answer Note LastModified by Organizat ion Details LastModified Time Do you use any illicit or recreational drugs? No Information not available 01/23/2024 Do you or have you ever used any other forms of tobacco or nicotine? No Information not available 01/23/2024 What is your level of alcohol consumption? None Information not available 01/23/2024 Are you able to care for yourself? Yes Information not available 01/23/2024 What is your exercise level? None Information not available 01/23/2024 Mental Status Question Answer Note LastModified by Organization D etails LastModified Time Do you feel stressed (tense, restless, nervous, or anxious, or unable to sleep at night)? [id number] Information not available 01/23/2024 Family History Relationship Description Onset Age of this Age Resolved Age Notes LastModified by Organization Details LastModified Time Father Heart disease [email or web address] Not available 01/04 15:33:04 Father Kidney disease bandersonma Not available 01/04 15:33:17 Medical History Condition Response Coronary Artery Disease N Other N High Blood Pressure Y Atrial Fibrillation N Thyroid Problems Y Kidney or Bladder Problems N GI Problems N Depression N COPD N Blood Clots N Skin Problems N Anemia N Heart Attack (MS) N Diabetes N Anxiety Disorder N Muscle, Joint, or Bone Problems N Seizures/Epilepsy N Acid Reflux (GERD) N Cancer N Stroke N Asthma N Allergies N High Cholesterol Y Hepatitis N Liver Disease N Headaches N Osteoporosis N Heart Failure N Past Encounters Encounter ID Performer Location Encounter Start Date Encounter Closed Date Diagnosis/Indication Diagnosis SNOMED-CT Code Diagnosis ICD10 Code Diagnosis Note [id number] Dieudonne Rodriguez MD [facility] (Adult Med) [address] [place] [address] 01/23/2024 15:08:45 01/23/2024 16:25:34 Pain of left wrist 1527087754 10813 M25.532 Coronary atherosclerosis 777874574 I25.10 Hypothyroidism 75585829 E03.9 Essential hypertension 93480750 I10 [id number] Dieudonne Rodriguez MD [facility] [place] [facility] [place] [address] [place] [address] 10/13/2024 15:05:01 10/13/2024 16:43:31 Body mass index 20-24 - normal 232723230 Z68.23 Essential hypertension 07123691 I10 Hypothyroidism 72575876 E03.9 Coronary atherosclerosis 055054246 I25.10 Health Concerns Section Related Observation LastModified by Organization Detai ls LastModified Time None Recorded Concern Status LastModified by Organization Details LastModified Time None Recorded Advance Directives Directive Y: Payers Encounter Date Sequence Insurance Name Policy Number Policy Mccann Covered Member ID Mccann Member ID Guarantor Name 01/23/2024 1 [place] Aung Kudelka [id number] Aung Kudelka 01/23/2024 2 [place] 106 Brie Mackeydelka [id number] Aung Kudelka 10/13/2024 1 [place] Aung Kudelka [id number] Aung Kudelka 10/13/2024 2 [place] 106 Brie Mackeydelka [id number] Aung Mackeydelsamuel Notes Date Note Type Note Provider Name and Address Organization Details Recorded Time 01/23/2024 text/html Pain left wrist went to the emergency room x-ray showed severe arthritis white blood cell count was normal uric acid was negative he was sent home. He thinks he may have neck the skin on his middle finger that hand a few days prior as he was working in the garage with a friend. No fever chills or red streaking up the arm. CAD no chest pain or shortness of breath hypothyroid energy level vacillates no heat or cold intolerance hypertension no chest pain or shortness of breath Dieudonne Rodriguez MD Attn: [address] [place], [address], [facility] 01/23/2024 21:10:07 10/13/2024 text/html Hypothyroid he says that he feels good even though he does not take any thyroid medicine at this time. CAD stent no chest pain no shortness a breath. Hypertension blood pressure 130/76 and he appears to be tolerating his medication without any side effects Dieudonne Rodriguez MD Attn: [address] [place], [address], [facility] 10/19/2024 15:41:39
--- OUTSIDE RECORDS SUMMARY | 2025-04-01 07:55 | XMS_ITS | Referral Summary ---
Author Organization [facility] C Address [address] [place] [address] Care Team Providers Care Director It Name Role Phone Enoc Rodriguez MD Primary Care Provider + [phone] Allergies Active Allergy Reactions Criticality Noted Date Comments Aspirin Atorvastatin Muscle pain Medium 12/05/2023 Metoprolol Tartrate Itching Low 05/03/2020 Penicillins Rash Medium Medications VYZULTA 0.024 % drops 07/18/2019 Active lisinopriL (PRINIVIL,ZESTRI L) 20 mg tablet TAKE 1 TABLET BY MOUTH EVERY DAY 90 tablet 1 12/19/2021 Active aspirin 81 mg enteric coated tablet TAKE 1 TABLET BY MOUTH EVERY DAY 90 tablet 5 06/29/2022 Active Active Problems Problem Noted Date Diagnosed Date Hyperkalemia 05/18/2021 Malaise 08/05/2020 Mixed hyperlipidemia 08/05/2020 H/O: GI bleed 08/05/2020 Bradycardia 08/04/2020 Essential hypertension 04/29/2020 Presence of stent in coronary artery 04/29/2020 Coronary artery disease invo lving [place] coronary artery of [place] heart 04/29/2020 Hypertriglyceridemia 03/18/2020 Assessment & Plan (03/18/2020 1:32 PM CDT): Low fat low carb diet Exercise Acquired hypothyroidism 03/06/2019 Assessment & Plan (03/15/2021 1:24 PM CDT): Unable to tolerate even lowe LT4 dose Recheck TSH, free T4 If TSH is rising, will consider to rechallenge with low dose T4 Assessment & Plan (03/18/2020 1:32 PM CDT): Mild. Stable Can not tolerate even low dose LT4 Will continue to monitor Assessment & Plan (09/11/2019 1:56 PM CRANE MECHANIC): Check TFT's If TSH has raised, will retry low dose LT4 Assessment & Plan (03/06/2019 1:47 PM CDT): Pt not able to tolerate even low dose of LT4 Would not try any other, since [place] and natural thyroid preps have T3, which is more likely to cause symptoms As long as the pt is asymptomatic, and TSH stays under 15-20, will monitor. 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 I you are doing fine, will send prescription and will recheck in 2 months. Assessment & Plan (01/01/2018 2:56 PM CRANE MECHANIC): TSH is midly elevated, but T4 and T3 are normal Patient is asymptomatic and had severe reaction to low dose LT 4 before Will continue to watch. Chronic purulent otitis media 03/21/2014 07/11/2017 Overview (02/10/2017): Chronic suppurative otitis media Social History Tobacco Use Types Packs/Day Years Used Date Smoking Tobacco: Never Smokeless Tobacco: Never Tobacco Cessation:Counseling Given: Not Answered Alcohol Use Standard Drinks/Week Comments No 0 (1 standard drink = 0.6 oz pur e alcohol) PHQ-2 Answer Date Recorded PHQ-2 Total Score (If total score is 3 or more points, staff should administer the PHQ-9) 0 03/15/2021 Sex and Gender Information Value Date Recorded Sex Assigned at Not on file Legal Sex Male 7:59 AM CRANE MECHANIC Gender Identity Not on file Sexual Orientation Not on file Last Filed Vital Signs Vital Sign Reading Time Taken Comments Blood Pressure 180/80 12/05/2023 3:02 PM CRANE MECHANIC Pulse 54 12/05/2023 3:02 PM CRANE MECHANIC Temperature - - Respiratory Rate 12 03/15/2021 12:55 PM CDT Oxygen Saturation 98% 12/05/2023 3:02 PM CRANE MECHANIC Inhaled Oxygen Concentration - - Weight 74.8 kg (165 lb) 12/05/2023 3:02 PM CRANE MECHANIC Height 180.3 cm (5' 11) 12/05/2023 3:02 PM CRANE MECHANIC Body Mass Index 23.01 12/05/2023 3:02 PM CRANE MECHANIC Plan of Treatment Not on file Insurance MEDICARE MEDICARE [facility] MEDICARE [facility] Care Teams Director It Relationship Specialty Start Date End Date Enoc Rodriguez MD PCP - General 02/05/17
--- OUTSIDE RECORDS SUMMARY | 2025-04-01 07:55 | XMS_ITS | Clinical Summary ---
[facility] Organization [facility] C Address [address] [place] [address] Care Team Providers Care Vmware Systems Administrator Name Role Phone Enoc Rodriguez MD Primary Care Provider + [phone] Allergies Active Allergy Reactions Criticality Noted Date [...] artery 04/29/2020 Coronary artery disease invo lving [place] coronary artery of [place] heart 04/29/2020 Hypertriglyceridemia 03/18/2020 Assessment & Plan [...] monitor Assessment & Plan (09/11/2019 1:56 PM REPAIRER HELPER): Check TFT's If TSH has raised, will retry low dose LT4 Assessment & Plan (03/06/2019 1:47 PM CDT): Pt not able to tolerate even low dose of LT4 Would not try any other, since [place] and natural thyroid preps have T3, which [...] 03/06/2019 Assessment & Plan (11/19/2018 9:34 AM REPAIRER HELPER): Start Synthroid, 25 mcg daily Call me in 3 weeks, to see how you are doing . I you are doing fine, will send prescription and will recheck in 2 months. Assessment & Plan (01/01/2018 2:56 PM REPAIRER HELPER): TSH is midly elevated, but T4 and T3 are normal Patient is asymptomatic and had severe reaction to low dose LT 4 before Will continue to watch. Chronic purulent otitis media 03/21/2014 07/11/2017 Overview (02/10/2017): Chronic suppurative otitis media Surgical History Surgery Date Site/Laterality Comments OTHER SURGICAL HISTORY 11/05/2011 - 11/04/2012 Lt. transcanal Tympanoplasty CARDIAC CATHETERIZATION 04/22/2020 CORONARY ANGIOPLASTY 04/22/2020 Mid RCA ANKLE SURGERY CATARACT EXTRACTION TRABECULECTOMY Medical History Medical History Date Comments Hx Other Medical eye surgery; Co mments: C 09/21/2016 - Hypertension Coronary artery disease Glaucoma Family History Medical History Relation Name Comments [facility] Requiring Dialysis Father Stroke Mother Relation Name Status Comments Father Mother Social History Tobacco Use Types Packs/Day Years [...] on file Legal Sex Male 7:59 AM REPAIRER HELPER Gender Identity Not on file Sexual Orientation Not on file Obstetrics History Last Filed Vital Signs Vital Sign Reading Time Taken Comments Blood Pressure 180/80 12/05/2023 3:02 PM REPAIRER HELPER Pulse 54 12/05/2023 3:02 PM REPAIRER HELPER Temperature - - Respiratory Rate 12 03/15/2021 12:55 PM CDT Oxygen Saturation 98% 12/05/2023 3:02 PM REPAIRER HELPER Inhaled Oxygen Concentration - - Weight 74.8 kg (165 lb) 12/05/2023 3:02 PM REPAIRER HELPER Height 180.3 cm (5' 11) 12/05/2023 3:02 PM REPAIRER HELPER Body Mass Index 23.01 12/05/2023 3:02 PM REPAIRER HELPER Plan of Treatment Health Maintenance Due Date Last Done Comments Fall Risk Assessment 1940 DTaP/Tdap/Td Vaccine (1 - Tdap) 1951 Hepatitis B Screening 1958 Pneumococcal vaccine 65+ (1 of 1 - PCV) 1990 Zoster Vaccine (1 of 2) 1990 Well Visit 65+ 2005 Depression Screening 03/15/2022 03/15/2021, 03/18/2020, 09/11/2019, Additional history exists Influenza Vaccine (Season Ended) 2025 Insurance MEDICARE MEDICARE [facility] MEDICARE [facility] Member Subscriber Plan / Payer (Ef fective 2015-Present) Name:Zacarias Naqvi Relation to Subscriber:Spouse Name:ISMAEL NAQVI Date of :1940 Address: [address] [place] [id number] Payer ID:[id number] (NAIC) Group ID:[id number] Type:[facility] Address: [address] [place] [phone] Care Teams Vmware Systems Administrator Relationship Specialty Start Date End Date Enoc Rodriguez MD PCP - General 02/05/17
== END 2025-04-01 07:53 | disposition home or self-care (01) ==
LOC: ANHAUDASC 07:53
PROVIDERS: PCP Internal Medicine; Visit Provider Otolaryngology
DX: H90.6 Mixed conductive and sensorineural hearing loss, bilateral (principal); H69.93 Unspecified Eustachian tube disorder, bilateral
CPT/HCPCS: 92557; 92567

== ENCOUNTER 2025-07-02 10:00 | Outpatient (RCR) | payer MEDICARE, BC, SELFPAY | END 2025-08-02 23:59 | disposition home or self-care (01) | LOC: ANHAUDASC 10:00 | PROVIDERS: PCP Internal Medicine; Visit Provider Internal Medicine | DX: Z46.1 Encounter for fitting and adjustment of hearing aid (principal) | CPT/HCPCS: 99199; V5261 ==